=== PATIENT | female | born 1970 | race Hispanic/Latino ===

== ENCOUNTER 2021-01-25 20:50 | Inpatient (IN) | payer OTHER ==
[~2021-01-25] VITALS: Ht 157.5 cm; Wt 64.9 kg
[2021-01-25] MEDS ORDERED: ASPIRIN 81 MG CHEW TAB PO ONE (21:15)
[2021-01-25 21:59] LABS: BASOPHILS % 0.5 % (0.0-1.0); EOSINOPHILS # (AUTO) 0.1 (0.0-0.4); EOSINOPHILS % 0.7 % (0.0-6.0); LYMPHOCYTES # (AUTO) 0.6 (1.0-3.2); LYMPHOCYTES % 7.2 % (18.0-39.1); MEAN CORPUSCULAR HGB CONC 23.9 g/dL (31-35); MEAN CORPUSCULAR VOLUME 62.7 fL (81-99); MONOCYTES # (AUTO) 0.4 (0.2-0.8); MONOCYTES % 4.2 % (4.4-11.3); NEUTROPHILS # (AUTO) 7.3 (2.1-6.9); PLATELET COUNT 275 x10e3/uL (140-360); RED BLOOD COUNT 3.14 x10e6/uL (3.6-5.1)
[2021-01-25 22:01] LABS: HEMATOCRIT 19.7 % (34.2-44.1); HEMOGLOBIN 4.7 g/dL (12.0-16.0)
[2021-01-25] MEDS ORDERED: SODIUM CHLORIDE 0.9% 250ML 250 ML IV ONE (22:15)
[2021-01-25 22:20] LABS: ALANINE AMINOTRANSFERASE 6 IU/L (0-55); ALBUMIN 4.1 g/dL (3.5-5.0); ALKALINE PHOSPHATASE 69 IU/L (40-150); ANION GAP 12.7 mmol/L (8-16); BLOOD UREA NITROGEN 10 mg/dL (7-26); BUN/CREATININE RATIO 15 (6-25); CALCIUM 8.8 mg/dL (8.4-10.2); CARBON DIOXIDE 21 mmol/L (22-29); CHLORIDE 108 mmol/L (98-107); CREATINE KINASE 52 IU/L (29-168); CREATININE, SERUM 0.67 mg/dL (0.57-1.11); EST GLOMERULAR FILTRATION RATE > 60 ML/MIN (60-); GLUCOSE 122 mg/dL (74-118); POTASSIUM 3.7 mmol/L (3.5-5.1); SODIUM 138 mmol/L (136-145)
[2021-01-25] MEDS ORDERED: PANTOPRAZOLE 40 MG 10ML VIAL IV ONE (23:00)
[2021-01-25] MEDS ORDERED: IOPAMIDOL 370 MG/ML 200 ML INFUS..BTL INJ ONE (23:10)
[2021-01-25] MEDS ORDERED: SODIUM CHLORIDE 0.9% 50ML 50 ML ONE (23:11)
[2021-01-25] MEDS ORDERED: ONDANSETRON HCL INJ 2MG/ML 2ML 2 MG/ML VIAL IV STA (23:35)
[2021-01-25] MEDS ORDERED: ONDANSETRON HCL INJ 2MG/ML 2ML 2 MG/ML VIAL ONE (23:48)
[2021-01-26] MEDS: PANTOPRAZOLE INJ 40 MG in SODIUM CHLORIDE 0.9% 50ML 50 ML IV SCH ×3 (00:39→08:01)
[2021-01-26] MEDS ORDERED: SODIUM CHLORIDE 0.9% 50ML 50 ML ONE (03:43)
[2021-01-26] MEDS ORDERED: ACETAMINOPHEN 325 MG TAB PO PRN (06:30)
[2021-01-26] MEDS ORDERED: MELATONIN 5 MG TABLET PO PRN (06:30)
[2021-01-26] MEDS ORDERED: ONDANSETRON HCL INJ 2MG/ML 2ML 2 MG/ML VIAL IV PRN (06:30)
[2021-01-26] MEDS ORDERED: HYDRALAZINE HCL 20 MG/ML VIAL IV PRN (06:30)
[2021-01-26 06:55] LABS: BASOPHILS % 0.4 % (0.0-1.0); EOSINOPHILS % 0.6 % (0.0-6.0); HEMATOCRIT 25.9 % (34.2-44.1); LYMPHOCYTES # (AUTO) 0.6 (1.0-3.2); LYMPHOCYTES % 9.3 % (18.0-39.1); MEAN CORPUSCULAR HEMOGLOBIN 18.1 pg (28-32); MEAN CORPUSCULAR HGB CONC 26.6 g/dL (31-35); MEAN CORPUSCULAR VOLUME 67.8 fL (81-99); MONOCYTES # (AUTO) 0.3 (0.2-0.8); MONOCYTES % 4.9 % (4.4-11.3); NEUTROPHILS # (AUTO) 5.7 (2.1-6.9); NEUTROPHILS % 84.5 % (38.7-80.0); PLATELET COUNT 246 x10e3/uL (140-360); RED BLOOD COUNT 3.82 x10e6/uL (3.6-5.1); RED CELL DISTRIBUTION WIDTH 21.6 % (11.7-14.4)
[2021-01-26 07:07] LABS: AMPHETAMINES SCREEN,URINE NEGATIVE (NEGATIVE); BENZODIAZEPINES SCREEN,URINE NEGATIVE (NEGATIVE); CLARITY,URINE CLEAR (CLEAR); COLOR,URINE YELLOW (YELLOW); KETONES,URINE NEGATIVE (NEGATIVE); LEUKOCYTE ESTERASE ,URINE NEGATIVE (NEGATIVE); NITRITE,URINE NEGATIVE (NEGATIVE); PHENCYCLIDINE SCREEN,URINE NEGATIVE (NEGATIVE); PROTEIN,URINE DIPSTICK NEGATIVE (NEGATIVE); URINE UROBILINOGEN 1 mg/dL (0.2 - 1)
[2021-01-26 07:15] LABS: CREATINE KINASE MB 1.1 ng/mL (0-5.0)
[2021-01-26 07:16] LABS: HEMOGLOBIN 6.9 g/dL (12.0-16.0)
[2021-01-26 07:21] LABS: BACTERIA,URINE MANY /HPF; EPITHELIAL CELLS,URINE FEW /LPF
[2021-01-26 07:29] LABS: ALANINE AMINOTRANSFERASE 7 IU/L (0-55); ALBUMIN 3.9 g/dL (3.5-5.0); ALBUMIN/GLOBULIN RATIO 1.1 (0.8-2.0); ALKALINE PHOSPHATASE 69 IU/L (40-150); ANION GAP 12.2 mmol/L (8-16); BLOOD UREA NITROGEN 9 mg/dL (7-26); BUN/CREATININE RATIO 14 (6-25); CALCIUM 8.6 mg/dL (8.4-10.2); CARBON DIOXIDE 21 mmol/L (22-29); CHLORIDE 109 mmol/L (98-107); CREATININE, SERUM 0.65 mg/dL (0.57-1.11); EST GLOMERULAR FILTRATION RATE > 60 ML/MIN (60-); GLUCOSE 110 mg/dL (74-118); POTASSIUM 4.2 mmol/L (3.5-5.1); SODIUM 138 mmol/L (136-145)
[2021-01-26] MEDS ORDERED: CEFTRIAXONE SOD 1 GM/50 ML BAG IV SCH (09:00)
[2021-01-26] MEDS ORDERED: SODIUM CHLORIDE 0.9% 250ML 250 ML IV ONE (09:00)
[2021-01-26 09:30] LABS: EOSINOPHILS % (MANUAL) 1 % (0-7); LYMPHOCYTES % (MANUAL) 10 % (19-48); MONOCYTES % (MANUAL) 2 % (3.4-9.0); NEUTROPHILS % (MANUAL) 87 % (40-74)
[2021-01-26 09:32] LABS: HYPOCHROMASIA MODERATE; RBC MORPHOLOGY COMMENT ABNORMAL
[2021-01-26 09:33] LABS: ANISOCYTOSIS SLIG; MICROCYTOSIS SLIG; PLATELET ESTIMATE ADEQUATE; PLATELET MORPHOLOGY COMMENT NORMAL; POIKILOCYTOSIS SLIGHT
[2021-01-26] MEDS: CEFTRIAXONE SOD 1 GM in SODIUM CHLORIDE 0.9% 50ML 50 ML IV SCH (09:44)
[2021-01-26 11:10] VITALS: BP 135/60
[2021-01-26 12:49] VITALS: BP 136/69
[2021-01-26 14:08] LABS: CREATINE KINASE MB 1.3 ng/mL (0-5.0)
[2021-01-26 14:23] LABS: % IRON SATURATION 5 % (15-50); IRON 21 ug/dL (50-170); TOTAL IRON BINDING CAPACITY 459 ug/dL (261-478); TRANSFERRIN 328 mg/dL (180-382)
[2021-01-26] MEDS: IRON SUCROSE 100 MG in SODIUM CHLORIDE 0.9% 100 ML 100 ML IV SCH (15:00)
[2021-01-26 16:00] VITALS: BP 111/60
[2021-01-26] MEDS: CYANOCOBALAMIN 1,000 MCG TAB PO SCH (18:31)
[2021-01-26] MEDS: FOLIC ACID 1 MG TAB PO SCH (18:31)
[2021-01-26] MEDS: ASCORBIC ACID 500 MG TAB PO SCH (18:32)
[2021-01-26 20:00] VITALS: BP 124/61
[2021-01-26] MEDS ORDERED: SODIUM CHLORIDE 0.9% 500ML 500 ML ONE (22:32)
[2021-01-27] MEDS ORDERED: BISACODYL 5 MG TAB EC PO ONE ×3 (00:30→09:15)
[2021-01-27 04:56] VITALS: BP 141/70
[2021-01-27] MEDS ORDERED: CITRATE OF MAGNESIA 300ML BOTTLE PO ONE ×2 (05:00→07:00)
[2021-01-27 06:46] LABS: EOSINOPHILS # (AUTO) 0.1 (0.0-0.4); EOSINOPHILS % 2.9 % (0.0-6.0); HEMATOCRIT 31.3 % (34.2-44.1); HEMOGLOBIN 8.8 g/dL (12.0-16.0); LYMPHOCYTES % 25.8 % (18.0-39.1); MEAN CORPUSCULAR HEMOGLOBIN 19.7 pg (28-32); MEAN CORPUSCULAR HGB CONC 28.1 g/dL (31-35); MONOCYTES # (AUTO) 0.5 (0.2-0.8); MONOCYTES % 13.3 % (4.4-11.3); NEUTROPHILS # (AUTO) 2.1 (2.1-6.9); PLATELET COUNT 218 x10e3/uL (140-360); RED BLOOD COUNT 4.47 x10e6/uL (3.6-5.1); RED CELL DISTRIBUTION WIDTH 23.9 % (11.7-14.4)
[2021-01-27 07:08] LABS: ALANINE AMINOTRANSFERASE 7 IU/L (0-55); ALBUMIN 3.8 g/dL (3.5-5.0); ALKALINE PHOSPHATASE 71 IU/L (40-150); ANION GAP 13.4 mmol/L (8-16); BLOOD UREA NITROGEN 6 mg/dL (7-26); BUN/CREATININE RATIO 9 (6-25); CARBON DIOXIDE 20 mmol/L (22-29); CHLORIDE 109 mmol/L (98-107); CREATININE, SERUM 0.64 mg/dL (0.57-1.11); EST GLOMERULAR FILTRATION RATE > 60 ML/MIN (60-); GLUCOSE 86 mg/dL (74-118); POTASSIUM 3.4 mmol/L (3.5-5.1); SODIUM 139 mmol/L (136-145)
[2021-01-27 07:39] VITALS: BP 113/67
[2021-01-27 08:10] VITALS: BP 113/67
[2021-01-27] MEDS: FOLIC ACID 1 MG TAB PO SCH (08:30)
[2021-01-27] MEDS: CYANOCOBALAMIN 1,000 MCG TAB PO SCH (08:31)
[2021-01-27] MEDS: ASCORBIC ACID 500 MG TAB PO SCH ×2 (08:31→16:47)
[2021-01-27] MEDS ORDERED: POTASSIUM CHLORIDE 20MEQ/100ML 100 ML IV SCH (10:00)
[2021-01-27] MEDS: CEFTRIAXONE SOD 1 GM in SODIUM CHLORIDE 0.9% 50ML 50 ML IV SCH (11:10)
[2021-01-27] MEDS ORDERED: MINERAL OIL 132 ML BTL PR ONE (11:15)
[2021-01-27] MEDS ORDERED: SODIUM CHLORIDE 0.9% 500ML 500 ML ONE (11:37)
[2021-01-27 12:00] VITALS: BP 117/67
[2021-01-27] MEDS: IRON SUCROSE 100 MG in SODIUM CHLORIDE 0.9% 100 ML 100 ML IV SCH (15:00)
[2021-01-27] MEDS ORDERED: MIDAZOLAM HCL 2 MG/2 ML VIAL ONE (17:37)
[2021-01-27] MEDS ORDERED: FENTANYL CITRATE/PF 100MCG/2 ML INJ ONE (17:37)
[2021-01-27] MEDS ORDERED: PROPOFOL IV EMULSION 10 MG/ML 20 ML VIAL ONE (17:41)
[2021-01-27] MEDS ORDERED: LIDOCAINE HCL 2% LOCAL INJ 5 ML SDV VIAL INJ ONE (17:41)
[2021-01-27 20:00] VITALS: BP_SYST 127; BP_SYST 129; BP_DIAS 62; BP_DIAS 72
[2021-01-27 20:27] VITALS: BP 129/62
[2021-01-28] VITALS: BP 117/69
[2021-01-28 04:00] VITALS: BP 125/66
[2021-01-28 06:48] LABS: BASOPHILS % 0.9 % (0.0-1.0); EOSINOPHILS # (AUTO) 0.1 (0.0-0.4); EOSINOPHILS % 2.1 % (0.0-6.0); HEMATOCRIT 32.1 % (34.2-44.1); HEMOGLOBIN 9.1 g/dL (12.0-16.0); LYMPHOCYTES # (AUTO) 1.3 (1.0-3.2); MEAN CORPUSCULAR HEMOGLOBIN 19.7 pg (28-32); MEAN CORPUSCULAR HGB CONC 28.3 g/dL (31-35); MEAN CORPUSCULAR VOLUME 69.5 fL (81-99); MONOCYTES # (AUTO) 0.4 (0.2-0.8); MONOCYTES % 9.4 % (4.4-11.3); NEUTROPHILS # (AUTO) 2.8 (2.1-6.9); NEUTROPHILS % 59.4 % (38.7-80.0); PLATELET COUNT 257 x10e3/uL (140-360); RED BLOOD COUNT 4.62 x10e6/uL (3.6-5.1); RED CELL DISTRIBUTION WIDTH 23.7 % (11.7-14.4)
[2021-01-28 07:11] LABS: ANION GAP 12.6 mmol/L (8-16); BLOOD UREA NITROGEN 12 mg/dL (7-26); BUN/CREATININE RATIO 19 (6-25); CALCIUM 9.2 mg/dL (8.4-10.2); CARBON DIOXIDE 18 mmol/L (22-29); CHLORIDE 109 mmol/L (98-107); CREATININE, SERUM 0.63 mg/dL (0.57-1.11); EST GLOMERULAR FILTRATION RATE > 60 ML/MIN (60-); GLUCOSE 88 mg/dL (74-118); POTASSIUM 3.6 mmol/L (3.5-5.1); SODIUM 136 mmol/L (136-145)
[2021-01-28 07:39] LABS: ANISOCYTOSIS MARKED
[2021-01-28 07:40] LABS: HYPOCHROMASIA MODERATE; PLATELET ESTIMATE ADEQUATE; PLATELET MORPHOLOGY COMMENT NORMAL; RBC MORPHOLOGY COMMENT ABNORMAL
[2021-01-28 07:41] LABS: POLYCHROMASIA FEW
[2021-01-28 07:42] LABS: ELLIPTOCYTE, RBC SLIGHT; MICROCYTOSIS MODERATE
[2021-01-28 08:00] VITALS: BP 113/69
[2021-01-28 08:07] VITALS: BP 113/69
[2021-01-28] MEDS: ASCORBIC ACID 500 MG TAB PO SCH (08:54)
[2021-01-28] MEDS: FOLIC ACID 1 MG TAB PO SCH (08:54)
[2021-01-28] MEDS: CEFTRIAXONE SOD 1 GM in SODIUM CHLORIDE 0.9% 50ML 50 ML IV SCH (08:54)
[2021-01-28] MEDS: CYANOCOBALAMIN 1,000 MCG TAB PO SCH (08:54)
[2021-01-28 11:42] VITALS: BP 125/69
[2021-01-28] MEDS ORDERED: FERROUS SULFAT325 MG PO (13:31)
[2021-01-28] MEDS ORDERED: VITAMIN B-121000 MCG PO (13:31)
[2021-01-28] MEDS ORDERED: ASCORBIC ACID500 MG PO (13:31)
[2021-01-28] MEDS ORDERED: Folic Acid PO (13:31)
[2021-01-28] MEDS ORDERED: CEFUROXIME250 MG PO (13:31)
== END 2021-01-28 15:15 | disposition home or self-care (01) | DRG 394 ==
LOC: ER 21:00 → ERHOLD 22:14 → MED/SURG 01-26 11:09
PROVIDERS: ADMIT Internal Medicine; ATTEND Internal Medicine
PROC: 30233N1 Transfusion of Nonautologous Red Blood Cells into Peripheral Vein, Percutaneous Approach (ICD-10-PCS; principal; 2021-01-25)
PROC: 0DBK8ZX Excision of Ascending Colon, Via Natural or Artificial Opening Endoscopic, Diagnostic (ICD-10-PCS; 2021-01-27)
PROC: 0DBP8ZX Excision of Rectum, Via Natural or Artificial Opening Endoscopic, Diagnostic (ICD-10-PCS; 2021-01-27)
PROC: 0DB98ZX Excision of Duodenum, Via Natural or Artificial Opening Endoscopic, Diagnostic (ICD-10-PCS; 2021-01-27 04:00)
PROC: 0DB78ZX Excision of Stomach, Pylorus, Via Natural or Artificial Opening Endoscopic, Diagnostic (ICD-10-PCS; 2021-01-27 04:00)
PROC: 0DB68ZX Excision of Stomach, Via Natural or Artificial Opening Endoscopic, Diagnostic (ICD-10-PCS; 2021-01-27 04:00)
DX: K63.5 Polyp of colon (principal); D62 Acute posthemorrhagic anemia; N39.0 Urinary tract infection, site not specified; K62.6 Ulcer of anus and rectum; K62.89 Other specified diseases of anus and rectum; Z83.3 Family history of diabetes mellitus; N92.0 Excessive and frequent menstruation with regular cycle; Z20.822 Contact with and (suspected) exposure to COVID-19; K64.8 Other hemorrhoids; K63.89 Other specified diseases of intestine; K29.50 Unspecified chronic gastritis without bleeding
CPT/HCPCS: 36415; 43239; 45378; 45380; 45385; 71260; 74177; 80048; 80053; 80307; 81001; 81025; 82270; 82550; 82553; 82607; 82746; 83540; 83690; 83880; 84466; 84484; 85025; 85730; 86850; 86900; 86920; 87086; 87186; 88305; 88312; 88342; 99284; J0696; J1756; J2001; J2250; J2405; J3010; J3480; J7040; J7050; P9016; Q9967; U0002